=== PATIENT | female | born 1995 | race Caucasian/White ===

== ENCOUNTER 2018-11-20 16:00 | Emergency (ER) | payer OTHER ==
[2018-11-20] MEDS ORDERED: 0.9 % SODIUM CHLORIDE 1,000 ML IV ONE (16:17)
[2018-11-20 16:48] LABS: BASOPHILS % 1.1 (0.0-1.5); EOSINOPHILS % 2.8 % (0.0-6.8); MEAN CORPUSCULAR HEMOGLOBIN 28.6 pg (28.0-34.0); MONOCYTES % 5.2 % (0.0-11.0)
--- NOTE | 2018-11-20 17:24 | ED Physician Documentation ---
General Adult - HISTORIAN Historian: patient - HPI Stated Complaint: high blood pressure Chief Complaint: General Adult Onset: hours Timing: still present Severity: moderate Further Comments: yes (Pt is a 23 yo female with concern for high blood pressure reading at school. Pt says bp at school was 170/100. Pt was walking in a hallway when she felt a strange feeling "like a wave" passing over her. Pt had seizures in childhood and these recurred last year after a 6 year seizure-free interval. Pt was concerned that this was a sign of seizure coming on. Pt is on keppra. Pt is feeling better now and is not hypertensive on presentation.) - ROS CONST: weakness (transient) EYES/ENT: none CVS/RESP: none GI/: none MS/SKIN/LYMPH: none NEURO/PSYCH: other (transient weakness) - PAST HX Past History: other (seizure) Allergies/Adverse Reactions: Allergies Allergy/AdvReac Type Severity Reaction Status Date / Time cephalexin [From Keflex] AdvReac Intermediate Rash Verified 11/20/18 16:14 cefixime [From Suprax] AdvReac Rash Verified 11/20/18 16:14 Home Medications: Ambulatory Orders Medication Instructions Recorded Levetiracetam 11/20/18 Norgestimate-Ethinyl Estradiol 11/20/18 [Tri-Sprintec Tablet] - SOCIAL HX Smoking History: non-smoker - FAMILY HX Family History: No - VITAL SIGNS Vital Signs: Vital Signs Temp Pulse Resp BP Pulse Ox 96.6 F L 78 19 131/81 98 11/20/18 16:03 11/20/18 17:09 11/20/18 17:09 11/20/18 17:09 11/20/18 17:09 - REVIEWED ASSESSMENTS Nursing Assessment Reviewed: Yes Vitals Reviewed: Yes Progress - Progress Progress: NS 1 L IVF ED Results Lab/Radiology - Lab Results Lab Results: Lab Results 11/20/18 16:28 WBC 11.00 K/ul K/ul (4.00-12.00) RBC 5.31 M/ul H M/ul (3.90-5.20) Hgb 15.2 g/dL g/dL (12.0-16.0) Hct 45.9 % % (34.5-46.5) MCV 86.0 fl fl (80.0-100.0) MCH 28.6 pg pg (28.0-34.0) MCHC 33.1 g/dL g/dL (30.0-36.0) RDW 13.7 % % (11.3-14.3) Plt Count 344 K/mm3 K/mm3 (130-400) Neut % (Auto) 54.5 % % (39.0-79.0) Lymph % (Auto) 36.4 % % (16.0-50.0) [place] % (Auto) 5.2 % % (0.0-11.0) Eos % (Auto) 2.8 % % (0.0-6.8) Baso % (Auto) 1.1 (0.0-1.5) Neut # (Auto) 6.0 # k/uL # k/uL (1.4-7.7) Lymph # (Auto) 4.0 # k/uL # k/uL (0.6-4.0) [place] # (Auto) 0.6 # k/uL # k/uL (0.0-0.9) Eos # (Auto) 0.3 # k/uL # k/uL (0.0-0.6) Baso # (Auto) 0.1 # k/uL # k/uL (0.0-0.5) - Orders Orders: ED Orders Category Date Time Status Place IV Lock 1T Care 11/20/18 16:17 Active CBC/PLATELET/DIFF Routine Lab 11/20/18 16:28 Completed CMP [CMP] Routine Lab 11/20/18 16:28 Received HCG [URINE HCG] Stat Lab 11/20/18 Uncollected UA [URINALYSIS] Routine Lab 11/20/18 Ordered 0.9 % Sodium Chloride [Normal Saline] 1,000 ml Med 11/20/18 16:17 Discontinued IV Q1H General Adult Physical Exam - PHYSICAL EXAM GENERAL APPEARANCE: mild distress EENT: eye inspection normal, pharynx normal NECK: normal inspection, supple RESPIRATORY: no resp distress, chest non-tender, breath sounds normal CVS: reg rate & rhythm, heart sounds normal ABDOMEN: soft, no organomegaly, normal bowel sounds BACK: normal inspection SKIN: warm/dry, normal color EXTREMITIES: non-tender, normal range of motion, no evidence of injury, no edema NEURO: oriented X3, CN's nml as tested, motor nml, sensation nml Discharge Clincal Impression: elevated blood pressure reading, hx seizure Referrals: Jim Davis MD [Primary Care Provider] - Condition: Good Disposition: 01 HOME, SELF-CARE Decision to Admit: NO Decision Time: 17:39
[2018-11-20 17:53] VITALS: BP 129/81
[2018-11-20 21:23] LABS: eGFR (Non-African) > 60
[2018-11-20 21:29] LABS: APPEARANCE,URINE CLEAR (CLEAR); COLOR,URINE YELLOW (YELLOW); OCCULT BLOOD,URINE NEGATIVE (NEGATIVE); PH URINE 6.5 (5.0 - 8.0); URINE HCG NEGATIVE (NEGATIVE); UROBILINOGEN URINE 0.2 Eu (0.2-1.0)
== END 2018-11-20 17:51 | disposition home or self-care (01) ==
LOC: ED 16:00
DX: R03.0 Elevated blood-pressure reading, without diagnosis of hypertension (principal); Z87.898 Personal history of other specified conditions
CPT/HCPCS: 36415; 80053; 81002; 81025; 85025; 99282; 99283; J7030; S1016